=== PATIENT | female | born 1955 | race African-American/Black ===

== ENCOUNTER 2017-09-28 15:51 | Emergency (ER) | payer BC ==
[2017-09-28 15:58] VITALS: BMI 29.5
[2017-09-28] MEDS ORDERED: TORADOL 60 MG VIAL IM ONE (17:09)
[2017-09-28] MEDS ORDERED: DECADRON INJ IM ONE (17:10)
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
[2017-09-28] MEDS ORDERED: DECADRON INJ ONE (17:21)
[2017-09-28] MEDS ORDERED: TORADOL 60 MG VIAL ONE (17:21)
[2017-09-28 17:36] LABS: BASOPHILS # (AUTO) 0.1 X10^3/uL (0.0-0.1); BASOPHILS % (AUTO) 0.8 % (0.2-1.0); EOSINOPHILS # (AUTO) 0.1 x10^3/uL (0.0-0.2); EOSINOPHILS % (AUTO) 0.7 % (0.9-2.9); HEMATOCRIT 39.3 % (36.0-47.0); HEMOGLOBIN 12.7 g/dL (12.0-16.0); LYMPHOCYTES # (AUTO) 1.5 X10^3/uL (1.3-2.9); LYMPHOCYTES % (AUTO) 15.6 % (21.0-51.0); MEAN CORPUSCULAR HEMOGLOBIN 21.5 pg (27.0-34.0); MEAN CORPUSCULAR HGB CONC 32.3 g/dL (33.0-35.0); MEAN CORPUSCULAR VOLUME 66.7 fL (80.0-100.0); MEAN PLATELET VOLUME 8.7 fL (7.4-11.0); MONOCYTES # (AUTO) 0.5 x10^3/uL (0.3-0.8); MONOCYTES % (AUTO) 5.4 % (0.0-13.0); NEUTROPHILS # (AUTO) 7.3 x10^3/uL (2.2-4.8); NEUTROPHILS % (AUTO) 77.5 % (42.0-75.0); PLATELET COUNT 343 X10^3/uL (150.0-450.0); RED BLOOD COUNT 5.89 X10^6/uL (3.5-5.4); WHITE BLOOD COUNT 9.4 X10^3/uL (3.6-10.0)
[2017-09-28 17:48] LABS: PLATELET MORPHOLOGY COMMENT NORMAL (NORMAL)
[2017-09-28 17:50] LABS: ANISOCYTOSIS SLIGHT; HYPOCHROMASIA 1+; MICROCYTOSIS 1+
[2017-09-28 17:54] LABS: BLOOD UREA NITROGEN 9 mg/dL (7-18); CALCIUM 9.1 mg/dL (8.5-10.1); CARBON DIOXIDE 27.7 mmol/L (21-32); CHLORIDE 105 mmol/L (98-107); COR NA(FOR HYPERGLY) 143 mmol/L (136-145); CREATININE 0.89 mg/dL (0.55-1.02); SODIUM 142 mmol/L (136-145); eGFR BLACK RACES > 60 (>60); eGFR NON BLACK RACES > 60 (>60)
[2017-09-28 18:59] VITALS: BP 128/61
--- NOTE | 2017-09-28 19:56 | CT ---
History: Low back pain. Pain radiating into the left leg. Exam: CT of the lumbar spine without IV contrast. Technique: Multiple contiguous axial CT images of the lumbar spine were obtained without IV contrast. Sagittal and coronal reformatted images were reconstructed. Automated exposure control (AEC) was ut ilized to adjust the MA and/or kV according to patient size. Comparison:NONE Findings: There is no acute fracture, dislocation, or subluxation. There is mild DDD and spondylosis at L3-L4 t hrough L5-S1. T12-L1: No significant spinal canal or neural foraminal stenosis. L1-L2: No significant spinal canal or neural foraminal stenosis. L2-L3: No significant spinal canal or neural foraminal stenosis. L3-L4: There is a concentric disc bulge with moderate severe bilateral facet arthrosis and ligamentum flavum thickening resulting in mild spinal canal stenosis and mild bilateral neural from stenosis. L4-L5: There is a concentric disc bulge with severe bilateral facet arthrosis and ligamentum flavum t hickening resulting in moderate severe spinal canal stenosis, bilateral subarticular zone/lateral rec ess stenosis and severe bilateral neural foraminal stenosis left worse than right. 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 There is a concentric disc bulge with severe bila teral facet arthrosis and ligamentum flavum thickening resulting in bilateral subarticular stenosis l eft worse than right, mild spinal canal stenosis, moderate right and severe left neural foraminal kaveh nosis. Impression: 1. No acute bony abnormalities of this lumbar spine are noted. There are multilevel degenerative aleman ges most severe at L4-5 and L5-S1 where there is spinal canal stenosis most severe at L4-5 and severe neural foraminal stenosis. See above for detailed level by level analysis. Reported By:
--- NOTE | 2017-09-28 19:59 | VAS ---
HISTORY: Left lower extremity pain Study: Bilateral lower extremity venous Doppler Comparison: None TECHNIQUE: Multiple bethea scale and color flow Doppler images of the deep venous system were obtained of the right and left lower extremity. FINDINGS: The deep venous system of the right and left lower extremities were evaluated from the level of the c ommon femoral vein through the popliteal vein. Normal color flow and augmentation can be observed. In addition, normal compression is seen throughout the deep venous system. IMPRESSION: 1. Negative for DVT. Reported By:
[2017-09-28] MEDS ORDERED: DEMEROL INJ IVP ONE (20:11)
[2017-09-28] MEDS ORDERED: PHENERGAN INJ 25 MG IM ONE (20:12)
[2017-09-28] MEDS ORDERED: DEMEROL INJ IM ONE (20:12)
[2017-09-28] MEDS ORDERED: PHENERGAN INJ 25 MG ONE (20:23)
[2017-09-28] MEDS ORDERED: DEMEROL INJ ONE (20:23)
== END 2017-09-28 20:30 | disposition home or self-care (01) ==
LOC: ER 15:51
DX: M48.061 Spinal stenosis, lumbar region without neurogenic claudication (principal); M51.36 Other intervertebral disc degeneration, lumbar region; M79.605 Pain in left leg; R73.9 Hyperglycemia, unspecified; E87.6 Hypokalemia
CPT/HCPCS: 36415; 72131; 80048; 85025; 85378; 93970; 96372; 99283; J1100; J1885; J2175; J2550

== ENCOUNTER 2017-12-22 19:57 | Emergency (ER) | payer BC ==
[2017-12-22 20:21] VITALS: BMI 35.9
[2017-12-22 21:16] LABS: BILIRUBIN,URINE 1+ (NEGATIVE); BLOOD/HEMOGLOBIN,URINE 2+ (NEGATIVE); GLUCOSE, URINE NEGATIVE (NEGATIVE); KETONES,URINE 1+ (NEGATIVE); LEUKOCYTE ESTERASE ,URINE 1+ (NEGATIVE); NITRITES,URINE NEGATIVE (NEGATIVE); PROTEIN,URINE 2+ (NEGATIVE); UROBILINOGEN,URINE 3+ (NORMAL)
--- NOTE | 2017-12-22 21:32 | RAD ---
Indication: Cough Exam: Portable chest Comparison: None. Findings: The heart is borderline enlarged. The pulmonary vessels are normal. No consolidation or eff usion is seen. The bones are intact. Impression: No acute cardiopulmonary abnormality. Reported By:
[2017-12-22 21:36] LABS: APPEARANCE,URINE SLIGHTLY HAZY (CLEAR); BACTERIA,URINE TRACE /HPF (NEGATIVE); COLOR,URINE YELLOW (YELLOW); RBC,URINE 0-3 /HPF (NEGATIVE); SQUAMOUS EPITHELIAL CELL,UR NUMEROUS /HPF (NEGATIVE)
--- NOTE | 2017-12-22 21:38 | DR.GENAD ---
HPI - Complaint/Symptoms Chief Complaint Doctors Comments: Patient states that she hurts all over. Chief Complaint:: PT STATES" MY HEAD HURTS MY BACK MY CHEST FROM COUGHING SO MUCH. I'M COUGHING UP ALOT OF THICK YELLOWISH GREEN SPUTUM" - Source History Provided: Patient - Mode of Arrival Mode of Arrival: Ambulatory - Timing Onset of Chief Complaint: 12/18/17 PMH - PMH Past Medical History: Yes Past Medical History: Diabetes, Hypertension Past Surgical History: Yes Surgical History: Abdominal Surgery, Hysterectomy - Family History History of Family Medical Conditions: No - Social History Does patient currently use any type of tobacco product: No Have you used tobacco products in the last 12 months: No Type of Tobacco Use: None Does any household member use tobacco: No Alcohol Use: None Do you use any recreational Drugs:: No Lives With: Family Lives Where: Home - infectious screening In the last 2 months have you had wt loss of >10#?: NO Have you had fever, night sweats or hemotysis?: No Have you traveled outside the country in the last 6 months?: No ROS - Review of Systems Eyes: No Symptoms Reported ENTM: No Symptoms Reported Respiratoy: Non-Productive Cough Cardiovascular: No Symptoms Reported Gastrointestinal/Abdominal: No Symptoms Reported Genitourinary: No Symptoms Reported Neurological: No Symptoms Reported Musculoskeletal: Muscle Pain Integumentary: No Symptoms Reported Hematologic/Lymphatic: No Symptoms Reported Endocrine: No Symptoms Reported Psychiatric: No Symptoms Reported All Other Systems: Reviewed and Negative PE - Vital Signs Vitals: Temperature 98.8 F Pulse Rate 85 Respiratory Rate 18 Blood Pressure [Left Arm] 128/61 Blood Pressure 144/67 O2 Sat by Pulse Oximetry 96 - General Limitations: No Limitations General Appearance: Alert, Anxious - Head Head Exam: Normal Inspection, Atraumatic - Eyes Eye exam: Normal Appearance, PERRL, EOMI - ENT ENT Exam: Normal Exam External Ear Exam: Normal External Inspection TM/Canal Exam: Bilateral Normal Nose Exam: Normal Nose Exam Mouth Exam: Normal Inspection Throat Exam: Normal Inspection - Neck Neck Exam: Normal Inspection, Full ROM - Chest Chest Inspection: Normal Inspection, Symmetric Chest Wall Rise - Respiratory Respiratory Exam: Normal Lung Sounds Bilat Respiratory Exam: Bilateral Clear to Auscultation - Cardiovascular Cardiovascular Exam: Regular Rate, Normal Rhythm - Abdominal Exam Abdominal Exam: Normal Inspection, Normal Bowel Sounds Abdominal Tenderness: negative: RUQ, RLQ, LUQ, LLQ, Epigastrium, Suprapubic, Diffuse, Mild, Moderate, Severe, Other - Extremities Extremities Exam: Normal Inspection - Back Back Exam: Normal Inspection, Full ROM - Neurologic Neurological Exam: Alert, Oriented X3, CN II-XII Intact - Psychiatric Psychiatric Exam: Normal Affect ROR - Labs Reviewed Laboratory Results Reviewed?: Yes (Influenza A) - Diagnosis Discharge Problem: Influenza A - Discharge Plan Condition: Stable - Follow ups/Referrals Follow ups/Referrals: NFD,None [Primary Care Provider] - 3 days - Instructions
[2017-12-22 22:11] VITALS: BP 139/63
== END 2017-12-22 22:09 | disposition home or self-care (01) ==
LOC: ER 19:57
DX: J11.1 Influenza due to unidentified influenza virus with other respiratory manifestations (principal)
CPT/HCPCS: 71045; 81001; 87070; 87502; 87880; 99282; 99283